=== PATIENT | male | born 1940 | race Caucasian/White ===

== ENCOUNTER → 2021-07-18 13:25 | Outpatient (CLI) | payer MEDICARE, OTHER, SELFPAY ==
--- NOTE | 2021-07-18 | DI.ECHO.S_ITS ---
[facility] +---------+ : : [address] [place] : : : : [id number] : : : : Phone: [phone]+ Echocardiogram Report + + :Name: MICHELLE CAN Study Date: 07/18/2021 Height: 69 in : :[facility] ReadingLocation: Weight: 300 lb : : Gender: Male BSA: 2.5 m2 : :: 1940 Age: 81 yrs BP: 154/90 mmHg: :Reason For Study: SHORTNESS OF BREATH : :Ordering Physician: KRISHAN, : :GABBY Performed By: Julieta Meneses : :Referring: GABBY NICKERSON : + + Interpretation Summary The ejection fraction is estimated to be 60-65%. The right ventricle is normal size. There is no significant valvular heart disease. Procedure: A two-dimensional transthoracic echocardiogram with color flow and Doppler was performed. The study quality was technically difficult. A contrast injection of Definity was performed to improve assessment of LV function. Comparison is made with the echocardiogram of 10/07/2014. The patient was in sinus rhythm with heart rates between 73-80 bpm during the exam. Left Ventricle: The left ventricle is normal in size. Left ventricular wall thickness is at the upper limits of normal. The ejection fraction is estimated to be 60-65%. Left ventricular wall motion is normal. Right Ventricle: The right ventricle is normal size. Right ventricular size has decreased since the prior echo exam. Right ventricular systolic function is mildly reduced. Atria: The left atrial size is normal. Right atrial size is normal. There is no Doppler evidence for an interatrial shunt. Mitral Valve: There is mild mitral annular calcification. There is trace mitral regurgitation. Aortic Valve: The aortic valve is mildly calcified. The aortic valve is trileaflet. There is no aortic valve stenosis. No aortic regurgitation is present. Tricuspid Valve: The tricuspid valve is not well visualized, but is grossly normal. There is trace tricuspid regurgitation. Pulmonic Valve: The pulmonic valve is not well seen, but is grossly normal. There is no pulmonic valvular regurgitation. Great Vessels: The aortic root is normal size. The ascending aorta is mildly enlarged. The IVC is of normal diameter and collapses greater than 50% with a sniff. This suggests a low right atrial pressure of 3 mm Hg. Pericardium/ Pleura There is no pericardial effusion. There is no pleural effusion. MMode/2D Measurements & Calculations LVIDd: 5.4 cm LVOT diam: 2.5 cm LVIDs: 3.4 cm Ao root diam: 3.5 cm FS: 36.7 % asc Aorta Diam: 3.7 cm IVSd: 0.97 cm Ao Arch Diam (Prox Trans): 3.2 cm LVPWd: 1.1 cm LV yoder. diameter/BSA (cm/m^2): 2.2 LV sys. diameter/BSA (cm/m^2): 1.4 LA A2 area: 22.1 cm2 RA long axis: 5.5 cm LA A4 area: 19.3 cm2 RA area: 16.3 cm2 LA length (vol): 5.9 cm RA vol: 40.9 ml LA vol: 61.7 ml RA : 16.7 ml/m2 LA vol index: 25.1 ml/m2 IVC diam: 1.5 cm RVD1 (basal): 3.5 cm TAPSE: 1.5 cm Doppler Measurements & Calculations Ao V2 max: 163.5 cm/sec LVOT Max Freddy: 100.3 cm/sec Ao V2 mean: 117.2 cm/sec LV V1 max P.0 mmHg Ao max P.7 mmHg LV V1 VTI: 25.4 cm Ao mean P.0 mmHg MIGUEL(I,D): 3.7 cm2 Ao V2 VTI: 33.9 cm MIGUEL(V,D): 3.0 cm2 sev ratio: 0.75 MIGUEL indexed to BSA (cm^2/m^2): 1.5 MV E max freddy: 72.7 cm/sec PA V2 max: 93.0 cm/sec MV A max freddy: 108.4 cm/sec PA V2 mean: 62.5 cm/sec MV E/A: 0.67 PA mean P.8 mmHg Med Peak E' Freddy: 5.2 cm/sec PA pr(Accel): 25.9 mmHg E/E' med: 14.0 Lat Peak E' Freddy: 5.8 cm/sec E/E' lat: 12.6 E/e' average: 13.3 MV dec time: 0.28 sec SV(LVOT): 125.1 ml Reading Physician:02:45 PM
[2021-07-19 08:24] LABS: COVID19 -Nasal RAPID Negative (Negative)
--- NOTE | 2021-07-19 19:20 | DI.NM.S_ITS ---
DATE OF SERVICE: 07/18/2021 PROCEDURE: Lexiscan perfusion study. INDICATION: Shortness of breath with underlying diabetes mellitus, hypertension and hyperlipidemia. RADIOPHARMACEUTICAL: 26.8 millicurie technetium-99m Myoview IV was injected at stress and 25.1 millicurie technetium-99m Myoview IV was injected at rest. CARDIAC STRESS: The patient underwent IV Lexiscan perfusion study under the supervision of an attending staff using standard intravenous Lexiscan, as per protocol. Baseline rhythm was sinus with diffuse low-voltage complexes. During stress, there were no convincing ischemic changes or new significant arrhythmias seen. The patient had mild shortness of breath and abdominal discomfort, which got resolved by 3 minutes in recovery. RAW DATA: There is increased subdiaphragmatic activity. Right arm was down during resting images. No prone images. GATED STUDY: Resting LV ejection fraction 78 percent and stress LV ejection fraction 70 percent without any obvious wall motion abnormalities. Resting end- diastolic volume 102 mL. TID ratio 1.56, which is abnormal. Lung/heart ratio 0.49, which is abnormal. MYOCARDIAL PERFUSION SCAN: Stress supine and resting supine images were compared to each other. There are no prone images. There appears to be a small size, mild reversible ischemia of inferolateral wall, as well as a small size reversible perfusion defect involving the mid anterior wall extending into the proximal anterolateral wall, as well. CONCLUSION: This is an abnormal myocardial perfusion study consistent with small size, mild reversible ischemia of mid anterior wall extending into the proximal anterolateral wall, as well as small size reversible ischemia of inferolateral wall. However, there is transient ischemic dilatation. TID ratio 1.56, which is abnormal, as well as lung-heart ratio 0.49, which is abnormal, suggestive of elevated left ventricular filling pressure. Abnormal transient ischemic dilatation suggest left main or multi-vessel coronary artery disease. The patient had exercise perfusion study in September,. At that time, the inferolateral defect got normalized during prone images. In this study, we do not have prone images, however, resting supine images did not reveal any significant perfusion defect. Hence, I am calling it reversible ischemia. Mid anterior wall and proximal anterolateral wall defect appears to be new, as well. Previous transient ischemic dilatation was 0.58, and in this study, 1.56. Fran Phillips - ISA/marielena/vin doc#: [id number]/job#: [id number] dd: 07/19/2021 16:56:00 dt: 07/19/2021 18:22:00 DICTATING MD/COPIES TO: Syd Beckham MD COPIES MNE: KASHIF;
== END ==
PROVIDERS: PCP Internal Medicine; Referring Provider Nurse Practitioner Acute Care; Visit Provider Nurse Practitioner Acute Care
DX: R94.31 Abnormal electrocardiogram [ECG] [EKG] (principal); R06.02 Shortness of breath; E11.9 Type 2 diabetes mellitus without complications; I10 Essential (primary) hypertension; E78.5 Hyperlipidemia, unspecified; Z20.822 Contact with and (suspected) exposure to COVID-19
CPT/HCPCS: 78452; 87635; 93017; 93306; A9502; J2785

== ENCOUNTER → 2024-10-12 13:46 | Outpatient (CLI) | payer MEDICARE, OTHER, SELFPAY ==
--- NOTE | 2024-10-12 13:49 | DI.ECHO.S_ITS ---
[facility] +---------+ [facility] : : [address] : : [place] : : [id number] : : Phone: [phone] Echocardiogram Report + + :Name: MICHELLE CAN Study Date: 10/12/2024 Height: 69 in : :[facility] ReadingLocation: Weight: 235 lb : : Gender: Male BSA: 2.2 m2 : :: 1940 Age: 84 yrs BP: 160/95 mmHg: :Reason For Study: MURMUR : :Ordering Physician: SHREYAS, : :RABIA Rodrigues Performed By: Julieta Meneses : :Referring: RABIA BLACK : + + Interpretation Summary There is mild concentric left ventricular hypertrophy. The ejection fraction is estimated to be 60-65%. Diastolic function could not be accurately assessed due to unobtainable data. The left atrium is moderately dilated. The right ventricle grossly appears normal in size with probable normal systolic function. There is mild mitral regurgitation. There is mild aortic stenosis. Pulmonary artery pressures cannot be estimated because of the lack of a measurable TR jet velocity but the IVC suggests a CVP of around 3 mmHg. Procedure: A two-dimensional transthoracic echocardiogram with color flow and Doppler was performed. The study quality was technically adequate. Comparison is made with the echocardiogram of 10/16/2021. The patient was in sinus rhythm with heart rates between 68-83 bpm during the exam. Left Ventricle: The left ventricle is normal in size. There is mild concentric left ventricular hypertrophy. Proximal septal thickening is noted. The ejection fraction is estimated to be 60-65%. Diastolic function could not be accurately assessed due to unobtainable data. Right Ventricle: The right ventricle is not well visualized. The right ventricle grossly appears normal in size with probable normal systolic function. Atria: The left atrium is moderately dilated. Right atrium not well visualized. There is no Doppler evidence for an interatrial shunt. Mitral Valve: There is mild mitral annular calcification. The mitral valve leaflets appear mildly thickened, but open well. There is mild mitral regurgitation. Aortic Valve: The aortic valve is trileaflet. The aortic valve is moderately calcified. There is mild aortic stenosis. The peak aortic velocity is 2.4 m/sec. The aortic valve mean gradient is 13 mmHg. No aortic regurgitation is present. Tricuspid Valve: The tricuspid valve leaflets are thin and pliable. There is trace tricuspid regurgitation. Pulmonary artery pressures cannot be estimated because of the lack of a measurable TR jet velocity but the IVC suggests a CVP of around 3 mmHg. Pulmonic Valve: The pulmonic valve leaflets are thin and pliable; valve motion is normal. There is a trace or physiologic amount of pulmonic regurgitation. Great Vessels: The aortic root is normal size. The ascending aorta is mildly enlarged. The IVC is of normal diameter and collapses greater than 50% with a sniff. This suggests a low right atrial pressure of 3 mm Hg. Pericardium/ Pleura There is no pericardial effusion. There is no pleural effusion. MMode/2D Measurements & Calculations LVIDd: 5.3 cm LVOT diam: 2.2 cm LVIDs: 3.7 cm Ao root diam: 3.6 cm FS: 30.9 % asc Aorta Diam: 3.8 cm IVSd: 1.0 cm Ao Arch Diam (Prox Trans): 3.1 cm LVPWd: 1.1 cm LV yoder. diameter/BSA (cm/m^2): 2.4 LV sys. diameter/BSA (cm/m^2): 1.7 LA A2 area: 28.2 cm2 IVC diam: 1.7 cm LA A4 area: 28.7 cm2 LA length (vol): 7.2 cm LA vol: 94.7 ml LA vol index: 42.8 ml/m2 RVD1 (basal): 3.5 cm Doppler Measurements & Calculations Ao V2 max: 235.5 cm/sec LVOT Max Freddy: 91.6 cm/sec Ao V2 mean: 170.5 cm/sec LV V1 max P.4 mmHg Ao max P.2 mmHg LV V1 VTI: 22.5 cm Ao mean P.8 mmHg MIGUEL(I,D): 1.7 cm2 Ao V2 VTI: 53.7 cm MIGUEL(V,D): 1.5 cm2 sev ratio: 0.42 MIGUEL indexed to BSA (cm^2/m^2): 0.75 MV E max freddy: 79.0 cm/sec PA V2 max: 103.4 cm/sec MV A max freddy: 95.8 cm/sec PA V2 mean: 71.4 cm/sec MV E/A: 0.82 PA mean P.3 mmHg Med Peak E' Freddy: 4.1 cm/sec PA pr(Accel): 27.6 mmHg E/E' med: 19.3 Lat Peak E' Freddy: 10.2 cm/sec E/E' lat: 7.8 E/e' average: 13.5 MV dec time: 0.23 sec MVA(VTI): 3.0 cm2 MV V2 mean: 67.3 cm/sec SV(LVOT): 88.7 ml MV mean P.0 mmHg MV V2 VTI: 29.4 cm Reading Physician:04:44 PM
== END ==
PROVIDERS: PCP Family Medicine; Referring Provider Internal Medicine Cardiovascular Disease; Visit Provider Internal Medicine Cardiovascular Disease
DX: R01.1 Cardiac murmur, unspecified (principal); I08.0 Rheumatic disorders of both mitral and aortic valves; I77.89 Other specified disorders of arteries and arterioles
CPT/HCPCS: 93306